=== PATIENT | female | born 1985 | race Caucasian/White ===

== ENCOUNTER 2018-11-12 18:09 | Emergency (ER) | payer OTHER ==
[2018-11-12 18:15] VITALS: TEMP 97.8; BMI 24.8
[2018-11-12] MEDS ORDERED: ONDANSETRON 4 MG/2 ML VIAL IVPUSH ONE (18:34)
[2018-11-12] MEDS ORDERED: SODIUM CHLORIDE 1,000 ML IV STA (18:34)
[2018-11-12] MEDS ORDERED: ONDANSETRON 4 MG/2 ML VIAL ONE (19:41)
[2018-11-12 20:09] LABS: BASO % 0.1 % (0-2.0); HEMOGLOBIN 14.4 GM/dL (10.7-15.3); LYMPH % 5.5 % (8-40); MCH 28.7 pg (25.7-33.7); MCHC 32.7 g/dl (32.0-36.0); MEAN CELL VOLUME 87.8 fl (80-96); MEAN PLT VOLUME 8.4 fl (7.5-11.1); MONO % 1.6 % (3.8-10.2); NEUT % 92.8 % (42.8-82.8); PLATELET COUNT 313 K/MM3 (134-434); RBC 5.01 M/mm3 (3.60-5.2); RDW 13.3 % (11.6-15.6); WHITE BLOOD COUNT 12.4 K/mm3 (4.0-10.0)
--- NOTE | 2018-11-12 20:28 | PDOC ---
History of Present Illness - General Chief Complaint: Nausea/Vomiting Stated Complaint: VOMITING Time Seen by Provider: 11/12/18 18:27 History Source: Patient Exam Limitations: No Limitations - History of Present Illness Travel History: No Initial Comments: 11/12/18 19:48 HISTORY OF PRESENT ILLNESS: 33-year-old woman denies medical history presents emergency department for evaluation of 2 days of abdominal pain. Patient reports the pain started on 7[place]for all [place] the [place] hamburgers hotdogs and sandwiches. She reports the pain as a diffuse abdominal pain which she describes as "really bad." Patient reports she has mild nausea and has been occasionally vomiting. But returned worse this morning. Patient reports that this time she is having a difficult time tolerating liquids including water. She denies any fevers, chills, diarrhea, constipation, hematuria, dysuria, rectal bleeding. No recent travel or sick contacts. PAST MEDICAL HISTORY: Denies past medical history SURGICAL HISTORY: Denies ALLERGIES: No known drug allergies REVIEW OF SYSTEMS General/Constitutional: Denies fever or chills. Denies weakness, weight change. HEENT: Denies change in vision. Denies ear pain or discharge. Denies sore throat. Cardiovascular: Denies chest pain or shortness of breath. Respiratory: Denies cough, wheezing, or hemoptysis. Gastrointestinal: see HPI Genitourinary: Denies dysuria, frequency, or change in urination. Musculoskeletal: Denies joint or muscle swelling or pain. Denies neck or back pain. Skin and breasts: Denies rash or easy bruising. Neurologic: Denies headache, vertigo, loss of consciousness, or loss of sensation. Psychiatric: Denies depression or anxiety. Endocrine: Denies increased thirst. Denies abnormal weight change. Hematologic/Lymphatic: Denies anemia, easy bleeding, or history of blood clots. Allergic/Immunologic: Denies hives or skin allergy. Denies latex allergy. PHYSICAL EXAM General Appearance: Well-appearing, appropriately dressed. No apparent distress , no intoxication. Respiratory/Chest: Lungs CTAB. No shortness of breath, chest tenderness, respiratory distress, accessory muscle use. No crackles, rales, rhonchi, stridor , wheezing, dullness Cardiovascular: RRR. S1, S2. No JVD, murmur, bradycardia, tachycardia. Vascular Pulses: Dorsalis-Pedis (R): 2+, Dorsalis-Pedis (L): 2+ Gastrointestinal/Abdominal: Normal bowel sounds. Abdomen soft, non-distended. No tenderness or rebound tenderness. No organomegaly, pulsatile mass, guarding, hernia, hepatomegaly, splenomegaly. (-)psoas and obturator signs. Lymphatic: No adenopathy, tenderness. Musculoskeletal/Extremities: Normal inspection. FROM of all extremities, normal capillary refill. Pelvis Stable. No CVA tenderness. No tenderness to extremities, pedal edema, swelling, erythema or deformity. Integumentary: Appropriate color, dry, warm. No cyanosis, erythema, jaundice or rash Neurologic: systems trainer II-XII intact. Fully oriented, alert. Appropriate mood/affect. Motor strength 5/5. No appreciable EOM palsy, facial droop or sensory deficit. Past History - Past Medical History Allergies/Adverse Reactions: Allergies Allergy/AdvReac Type Severity Reaction Status Date / Time No Known Allergies Allergy Verified 11/12/18 18:15 Home Medications: Ambulatory Orders Ondansetron [Zofran -] 4 mg PO TID #21 tablet 11/13/18 COPD: No - Suicide/Smoking/Psychosocial Hx Smoking History: Never smoked *Physical Exam - Vital Signs Last Vital Signs Temp Pulse Resp BP Pulse Ox 97.8 F 64 18 133/67 100 11/12/18 18:12 11/12/18 18:12 11/12/18 18:12 11/12/18 18:12 11/12/18 18:12 ED Treatment Course - LABORATORY CBC & Chemistry Diagram: 11/12/18 19:50 11/12/18 19:50 Medical Decision Making - Medical Decision Making 11/12/18 20:28 A/P: 33-year-old woman abdominal pain nausea and vomiting for 3 days Normal exam is benign Likely an acute viral gastroenteritis although patient has had no fevers or diarrhea. Differential diagnosis includes but is not limited to-pancreatitis, GERD, cholecystitis, gastritis, occult infection Labs including lipase Urine including culture Normal saline 1 L IV bolus Zofran 4 mg IV Reassess 11/13/18 00:54 There is no evidence of acute diverticulitis. No bowel distention. The appendix is normal. Trace fluid in the posterior cul-de-sac is nonspecific and may be incidental physiologic fluid No loculated fluid collections or intra-abdominal free air The upper abdominal visceral organs are unremarkable Visualized lung bases are clear Patient is reports her pain is improved after receiving morphine dose earlier. I 'll give the patient an oral trial and if she tolerates I will discharge home. *DC/Admit/Observation/Transfer Diagnosis at time of Disposition: Gastroenteritis - Discharge Dispostion Disposition: HOME Condition at time of disposition: Fair Decision to Admit order: No - Prescriptions Prescriptions: Ondansetron [Zofran -] 4 mg PO TID #21 tablet - Referrals - Patient Instructions Additional Instructions: Rest, drink lots of fluids: Teas, water, soups Triny nishant, carbonated beverages for the bubbles May try peppermint teas Avoid heavy , spicy or fatty foods until symptoms have resolved Avoid contact with others until fevers and symptoms resolved Lots of handwashing and good hygiene Continue [id number] medications for symptomatic relief Tylenol or Motrin for fever and pain May use Zofran-one tablet dissolved on tongue as needed for nauseousness. May repeat times one every 8 hours Followup with private physician in one to 2 days as needed Return to emergency department for worsened symptoms, fevers, dehydration - Post Discharge Activity
[2018-11-12 20:35] LABS: ALBUMIN 4.3 g/dl (3.4-5.0); BILIRUBIN,TOTAL 0.6 mg/dL (0.2-1); BLOOD UREA NITROGEN 9.5 mg/dL (7-18); CALCIUM 9.4 mg/dL (8.5-10.1); CREATININE 0.7 mg/dL (0.55-1.3); POTASSIUM 3.6 mmol/L (3.5-5.1); TOT PROT 7.8 g/dl (6.4-8.2)
[2018-11-12 20:52] LABS: ANISOCYTOSIS 0; MACROCYTOSIS 0; OVALOCYTE 1+; PLATELET ESTIMATE NORMAL
[2018-11-12 21:15] LABS: HCG,QUALITATIVE URINE Negative
[2018-11-12 21:23] LABS: HYALINE CASTS 13 /lpf (0-8); PH,URINE 7.5 (5.0-8.0); URINE APPEARANCE CLOUDY; URINE BACTERIA 123.8 /hpf (NEGATIVE); URINE BILIRUBIN NEGATIVE (NEGATIVE); URINE COLOR YELLOW; URINE GLUCOSE (UA) NEGATIVE (NEGATIVE); URINE KETONE 4+ (NEGATIVE); URINE LEUK ESTERASE NEGATIVE (NEGATIVE); URINE NITRITE NEGATIVE (NEGATIVE); URINE PROTEIN NEGATIVE (NEGATIVE); URINE RBC 42 /hpf (0-4); URINE UROBILINOGEN 0.2 mg/dL (0.2-1.0); URINE WBC 3 /hpf (0-5)
[2018-11-12] MEDS ORDERED: morphine CARPU-JECT 2 MG/1 ML DISP.SYRIN IVPUSH ONE (23:43)
[2018-11-12] MEDS ORDERED: MORPHINE SULFATE 2 MG/ML VIAL ONE (23:48)
[2018-11-13] MEDS ORDERED: LIDOCAINE VISCOUS 2% ORAL/TOP 20 ML UNIT-DOSE CUP PO ONE (02:46)
[2018-11-13] MEDS ORDERED: MAG HYDROX/AL HYDROX/SIMETH 30 ML UNIT-DOSE CUP PO ONE (02:46)
[2018-11-13] MEDS ORDERED: ONDANSETRON 4 MG/2 ML VIAL IVPUSH ONE (02:46)
[2018-11-13] MEDS ORDERED: LIDOCAINE VISCOUS 2% ORAL/TOP 20 ML UNIT-DOSE CUP ONE (02:48)
[2018-11-13] MEDS ORDERED: MAG HYDROX/AL HYDROX/SIMETH 30 ML UNIT-DOSE CUP ONE (02:49)
[2018-11-13] MEDS ORDERED: ONDANSETRON 4 MG/2 ML VIAL ONE (02:49)
[2018-11-13 03:12] VITALS: BP 130/70; PULSE 69
--- NOTE | 2018-11-13 13:05 | EKG ---
Test Reason : Blood Pressure : / mmHG Vent. Rate : 064 BPM Atrial Rate : 064 BPM P-R Int : 152 ms QRS Dur : 084 ms QT Int : 472 ms P-R-T Axes : 044 056 051 degrees QTc Int : 486 ms NORMAL SINUS RHYTHM LEFT ATRIAL ENLARGEMENT PROLONGED QT ABNORMAL ECG NO PREVIOUS ECGS AVAILABLE Confirmed by MD ZBIGNIEW, PILO ([id number]) on 11/13/2018 1:05:07 PM Referred By: Confirmed By:PILO COY MD
== END 2018-11-13 03:12 | disposition home or self-care (01) ==
LOC: JER 18:09
PROC: 3E0337Z Introduction of Electrolytic and Water Balance Substance into Peripheral Vein, Percutaneous Approach (ICD-10-PCS; principal; 2018-11-12)
PROC: 3E033NZ Introduction of Analgesics, Hypnotics, Sedatives into Peripheral Vein, Percutaneous Approach (ICD-10-PCS; 2018-11-12)
PROC: 3E033GC Introduction of Other Therapeutic Substance into Peripheral Vein, Percutaneous Approach (ICD-10-PCS; 2018-11-12)
PROC: 3E033GC Introduction of Other Therapeutic Substance into Peripheral Vein, Percutaneous Approach (ICD-10-PCS; 2018-11-12)
DX: K52.9 Noninfective gastroenteritis and colitis, unspecified (principal)
CPT/HCPCS: 36415; 74177-TC; 80053; 81003; 83690; 84703; 85025; 86850; 86900; 86901; 87086; 93005; 93010; 96361; 96374; 96375; 96376; 99283-25; J7030